=== PATIENT | female | born 1990 | race Caucasian/White ===

== ENCOUNTER → 2017-10-24 | Outpatient (CLI) | payer OTHER ==
[~2017-10-24] MED LIST: ALBU90OI6 INH; IBUP800 PO; TRAM50 PO; Ultram50 MG PO; Verotin-Gr Cap1 EACH PO
[2017-10-25 10:59] LABS: Source Vaginal/Cervical
== END | disposition home or self-care (01) ==
LOC: LAB 16:32 → LAB SHORT 16:32
PROVIDERS: Advanced Practice Midwife
DX: Z34.80 Encounter for supervision of other normal pregnancy, unspecified trimester (principal)
CPT/HCPCS: G0123

== ENCOUNTER → 2018-04-15 | Outpatient (CLI) | payer OTHER | END | disposition home or self-care (01) | LOC: LAB SHORT 15:52 → LAB 15:52 | DX: Z34.80 Encounter for supervision of other normal pregnancy, unspecified trimester (principal) | CPT/HCPCS: 87081; 87653 ==

== ENCOUNTER 2021-10-05 06:22 | Emergency (ER) | payer OTHER ==
[~2021-10-05] VITALS: Ht 160 cm; Wt 63.0 kg
[2021-10-05] MEDS ORDERED: Prozac20 MG PO (06:40)
[2021-10-05] MEDS ORDERED: ALPR1 PO (06:41)
[2021-10-05] MEDS ORDERED: OXYACE7.5T PO (07:51)
[2021-10-05] MEDS ORDERED: CRUTCH4 XX (07:51)
== END 2021-10-05 08:11 | disposition home or self-care (01) ==
LOC: ER 06:22
DX: S93.401A Sprain of unspecified ligament of right ankle, initial encounter (principal); S96.911A Strain of unspecified muscle and tendon at ankle and foot level, right foot, initial encounter; F17.210 Nicotine dependence, cigarettes, uncomplicated; X58.XXXA Exposure to other specified factors, initial encounter
CPT/HCPCS: 29515; 73610; 73630; 99283-25; A9270; L1906

== ENCOUNTER 2021-10-06 13:56 | Emergency (ER) | payer OTHER ==
[~2021-10-06] VITALS: Ht 160 cm; Wt 63.0 kg
[~2021-10-06 13:56] MED LIST changes: +ALPR1 PO; +CRUTCH4 XX; +OXYACE7.5T PO; +Prozac20 MG PO
== END 2021-10-06 14:44 | disposition home or self-care (01) ==
LOC: ER 13:56
DX: S92.901A Unspecified fracture of right foot, initial encounter for closed fracture (principal); J45.909 Unspecified asthma, uncomplicated; F17.210 Nicotine dependence, cigarettes, uncomplicated; Z79.899 Other long term (current) drug therapy; X58.XXXA Exposure to other specified factors, initial encounter
CPT/HCPCS: 29515; 99281

== ENCOUNTER 2021-10-23 12:21 | Day surgery (SDC) | payer OTHER ==
[~2021-10-23] VITALS: Ht 160 cm; Wt 68.1 kg
== END 2021-10-23 16:35 | disposition home or self-care (01) ==
LOC: ORSCSDS 12:21
PROVIDERS: Podiatrist Foot & Ankle Surgery
PROC: 0SGK04Z Fusion of Right Tarsometatarsal Joint with Internal Fixation Device, Open Approach (ICD-10-PCS; principal; 2021-10-23 14:15)
DX: S93.324A Dislocation of tarsometatarsal joint of right foot, initial encounter (principal); M25.571 Pain in right ankle and joints of right foot; Z87.891 Personal history of nicotine dependence; J45.909 Unspecified asthma, uncomplicated; Z79.899 Other long term (current) drug therapy
CPT/HCPCS: A9270; C1713; C1734; C1769; J0171; J1100; J2250; J2405; J2704; J3010; J7120

== ENCOUNTER 2021-10-29 14:07 | Emergency (ER) | payer OTHER ==
[~2021-10-29] VITALS: Ht 167.6 cm; Wt 68.0 kg
== END 2021-10-29 14:25 | disposition home or self-care (01) ==
LOC: ER 14:07
DX: Z47.89 Encounter for other orthopedic aftercare (principal); Z87.891 Personal history of nicotine dependence
CPT/HCPCS: 99282

== ENCOUNTER 2022-03-22 09:19 | Emergency (ER) | payer OTHER ==
[~2022-03-22] VITALS: Ht 160 cm; Wt 72.6 kg
[2022-03-22 09:56] LABS: Source, Urine Clean Catch
[2022-03-22 10:04] LABS: Appearance, Urine Cloudy (Clear); Bilirubin, Urine Neg (Neg); Blood, Urine 5+ (Neg); Glucose Qualitative, Urine Neg (Neg); Ketones, Urine Neg (Neg); Leukocyte Esterase, Urine 1+ (Neg); Nitrite, Urine Neg (Neg); Protein, Urine 2+ (Neg); Urobilinogen, Urine NORM (Normal)
[2022-03-22 10:20] LABS: BASOPHILS ABSOLUTE AUTO 0.02 K/mm3 (0.00-0.23); BASOPHILS PERCENT AUTO 0 % (0-2); EOSINOPHILS ABSOLUTE AUTO 0.08 K/mm3 (0.00-0.68); EOSINOPHILS PERCENT AUTO 1 % (0-6); Hematocrit 32.1 % (33.0-51.0); Hemoglobin 10.7 g/dL (11.5-16.0); IMMATURE GRAN ABSOLUTE AUTO 0.03 K/mm3 (0.00-0.10); IMMATURE GRAN PERCENT AUTO 0 % (0-1); LYMPHOCYTES PERCENT AUTO 19 % (21-46); MONOCYTES ABSOLUTE AUTO 0.47 K/mm3 (0.16-1.47); MONOCYTES PERCENT AUTO 6 % (4-13); Mean Corpuscular HGB 28.4 pg (26.0-34.0); Mean Corpuscular HGB Conc 33.3 g/dL (31.5-36.5); Mean Corpuscular Volume 85 fL (80-100); Mean Platelet Volume 10.5 fL (9.1-12.4); NEUTROPHILS ABSOLUTE AUTO 5.91 K/mm3 (1.96-9.15); NEUTROPHILS PERCENT AUTO 74 % (41-73); Platelet Count 195 K/mm3 (150-400); RDW Coefficient Variation 13.7 % (11.7-14.2); RDW Standard Deviation 41.8 fL (35.1-46.3); Red Blood Cell Count 3.77 M/mm3 (3.80-5.20); White Blood Cell Count 8.01 K/mm3 (4.00-11.30)
[2022-03-22 10:24] LABS: Color, Urine Red (P-Yellow)
[2022-03-22 10:35] LABS: Albumin, Blood 2.5 g/dL (3.4-5.0); Albumin/Globulin Ratio 0.8 (0.8-1.8); Bilirubin, Total 0.2 mg/dL (0.1-1.0); Bun/Creatinine Ratio 10.9 (12.0-20.0); Calcium, Blood 8.4 mg/dL (8.5-10.1); Creatinine, Blood 0.37 mg/dL (0.40-1.00); Globulin, Blood 3.2 g/dL (2.2-4.0); Potassium, Blood 2.5 mmol/L (3.5-5.5); Total Protein, Blood 5.7 g/dL (6.4-8.2)
[2022-03-22 10:40] LABS: Bacteria Rare /hpf; Red Blood Cells, Urine TNTC /hpf (0-2); Squamous Epithelial Cells Rare /hpf (Few); White Blood Cells, Urine 0-2 /hpf (0-5)
== END 2022-03-22 13:02 | disposition home or self-care (01) ==
LOC: ER 09:19
PROVIDERS: Physician Assistant
DX: O26.832 Pregnancy related renal disease, second trimester (principal); N13.2 Hydronephrosis with renal and ureteral calculous obstruction; O99.891 Other specified diseases and conditions complicating pregnancy; E87.6 Hypokalemia; O99.512 Diseases of the respiratory system complicating pregnancy, second trimester; J45.909 Unspecified asthma, uncomplicated; Z3A.23 23 weeks gestation of pregnancy; Z87.891 Personal history of nicotine dependence; Z79.899 Other long term (current) drug therapy
CPT/HCPCS: 36415; 76770; 76816; 80053; 81001; 84702; 85025; 87086; 93005; 93010; 99284-25; A9270

== ENCOUNTER 2022-06-26 11:07 | Inpatient (IN) | payer OTHER ==
[~2022-06-26] VITALS: Ht 160 cm; Wt 79.1 kg
--- NOTE | 2022-06-26 11:55 | NUR ---
D/C HOME WITH MOM
[2022-06-26 12:13] LABS: BASOPHILS ABSOLUTE AUTO 0.03 K/mm3 (0.00-0.23); BASOPHILS PERCENT AUTO 0 % (0-2); EOSINOPHILS ABSOLUTE AUTO 0.11 K/mm3 (0.00-0.68); EOSINOPHILS PERCENT AUTO 1 % (0-6); Hematocrit 30.4 % (33.0-51.0); Hemoglobin 10.3 g/dL (11.5-16.0); IMMATURE GRAN ABSOLUTE AUTO 0.04 K/mm3 (0.00-0.10); IMMATURE GRAN PERCENT AUTO 1 % (0-1); LYMPHOCYTES ABSOLUTE AUTO 1.64 K/mm3 (0.84-5.20); LYMPHOCYTES PERCENT AUTO 21 % (21-46); MONOCYTES ABSOLUTE AUTO 0.59 K/mm3 (0.16-1.47); MONOCYTES PERCENT AUTO 7 % (4-13); Mean Corpuscular HGB 28.1 pg (26.0-34.0); Mean Corpuscular HGB Conc 33.9 g/dL (31.5-36.5); Mean Corpuscular Volume 83 fL (80-100); Mean Platelet Volume 10.4 fL (9.1-12.4); NEUTROPHILS ABSOLUTE AUTO 5.51 K/mm3 (1.96-9.15); NEUTROPHILS PERCENT AUTO 70 % (41-73); Platelet Count 269 K/mm3 (150-400); RDW Coefficient Variation 14.5 % (11.7-14.2); RDW Standard Deviation 42.7 fL (35.1-46.3); Red Blood Cell Count 3.66 M/mm3 (3.80-5.20); White Blood Cell Count 7.92 K/mm3 (4.00-11.30)
[2022-06-26 12:33] LABS: Albumin, Blood 2.3 g/dL (3.4-5.0); Albumin/Globulin Ratio 0.6 (0.8-1.8); Bilirubin, Total 0.6 mg/dL (0.1-1.0); Bun/Creatinine Ratio 8.2 (12.0-20.0); Calcium, Blood 7.9 mg/dL (8.5-10.1); Creatinine, Blood 0.49 mg/dL (0.40-1.00); Globulin, Blood 3.7 g/dL (2.2-4.0); Potassium, Blood 2.7 mmol/L (3.5-5.5)
[2022-06-26 13:56] LABS: Protein, Urine Random 40.7 mg/dL (0.0-11.9); Protein/Creat Ratio, Ur Random 0.4
[2022-06-26] MEDS ORDERED: PRENATAL TABLE1 EAC2 PO (21:44)
[2022-06-28 06:32] LABS: BASOPHILS ABSOLUTE AUTO 0.06 K/mm3 (0.00-0.23); BASOPHILS PERCENT AUTO 1 % (0-2); EOSINOPHILS ABSOLUTE AUTO 0.22 K/mm3 (0.00-0.68); EOSINOPHILS PERCENT AUTO 2 % (0-6); Hemoglobin 11.2 g/dL (11.5-16.0); IMMATURE GRAN ABSOLUTE AUTO 0.06 K/mm3 (0.00-0.10); IMMATURE GRAN PERCENT AUTO 1 % (0-1); LYMPHOCYTES ABSOLUTE AUTO 2.98 K/mm3 (0.84-5.20); LYMPHOCYTES PERCENT AUTO 25 % (21-46); MONOCYTES ABSOLUTE AUTO 1.04 K/mm3 (0.16-1.47); MONOCYTES PERCENT AUTO 9 % (4-13); Mean Corpuscular HGB 28.1 pg (26.0-34.0); Mean Corpuscular HGB Conc 33.9 g/dL (31.5-36.5); Mean Corpuscular Volume 83 fL (80-100); Mean Platelet Volume 10.7 fL (9.1-12.4); NEUTROPHILS ABSOLUTE AUTO 7.73 K/mm3 (1.96-9.15); NEUTROPHILS PERCENT AUTO 64 % (41-73); Platelet Count 321 K/mm3 (150-400); RDW Coefficient Variation 14.6 % (11.7-14.2); RDW Standard Deviation 42.5 fL (35.1-46.3); Red Blood Cell Count 3.99 M/mm3 (3.80-5.20); White Blood Cell Count 12.09 K/mm3 (4.00-11.30)
== END 2022-06-28 12:05 | disposition home or self-care (01) | DRG 807 ==
LOC: OBS 11:07 → BC 11:07 → OBS 14:17 → BC 14:18
PROVIDERS: ADMIT Obstetrics & Gynecology
PROC: 10E0XZZ Delivery of Products of Conception, External Approach (ICD-10-PCS; principal; 2022-06-27)
DX: O14.14 Severe pre-eclampsia complicating childbirth (principal); Z37.0 Single live birth; Z3A.38 38 weeks gestation of pregnancy; Z67.40 Type O blood, Rh positive
CPT/HCPCS: 36415; 36416; 51702; 59025; 80053; 82570; 84156; 85025; 86803; 86850; 86900; 86901; 86923; A9270; J2210; J2590; J3010; J7120

== ENCOUNTER 2022-10-30 19:22 | Emergency (ER) | payer OTHER ==
[~2022-10-30] VITALS: Ht 160 cm; Wt 81.7 kg
[~2022-10-30 19:22] MED LIST changes: +PRENATAL TABLE1 EAC2 PO
== END 2022-10-30 20:21 | disposition home or self-care (01) ==
LOC: ER 19:22
DX: S60.512A Abrasion of left hand, initial encounter (principal); F10.129 Alcohol abuse with intoxication, unspecified; Z87.891 Personal history of nicotine dependence; W18.30XA Fall on same level, unspecified, initial encounter; Z79.899 Other long term (current) drug therapy
CPT/HCPCS: 99283

== ENCOUNTER 2023-02-07 12:36 | Emergency (ER) | payer OTHER ==
[~2023-02-07] VITALS: Ht 165.1 cm; Wt 81.7 kg
[2023-02-07 13:27] VITALS: BP 132/91
[2023-02-07] MEDS ORDERED: Percocet 5-3251 EACH PO (15:26)
== END 2023-02-07 15:44 | disposition home or self-care (01) ==
LOC: ER 12:36
DX: S93.601A Unspecified sprain of right foot, initial encounter (principal); J45.909 Unspecified asthma, uncomplicated; B19.20 Unspecified viral hepatitis C without hepatic coma; Z79.899 Other long term (current) drug therapy; Z87.891 Personal history of nicotine dependence; W01.198A Fall on same level from slipping, tripping and stumbling with subsequent striking against other object, initial encounter
CPT/HCPCS: 73630; A9270; J1885

== ENCOUNTER → 2023-06-30 | Outpatient (CLI) | payer OTHER ==
[~2023-06-30] MED LIST changes: +Percocet 5-3251 EACH PO
[2023-07-01 10:34] LABS: Candida species (DNA Probe) Negative (NEGATIVE); G. vaginalis (DNA Probe) Positive (NEGATIVE); T. vaginalis (DNA Probe) Negative (NEGATIVE)
[2023-07-04 00:46] LABS: APTIMA MEDIA TYPE Unisex Swab; C. TRACHOMATIS BY TMA Negative (Negative); N. GONORRHOEAE BY TMA Negative (Negative); SPECIMEN SOURCE Vaginal
[2023-07-04 01:27] LABS: HSV 1 SUBTYPE BY PCR Not Detected; HSV 2 SUBTYPE BY PCR Detected; HSV SUBTYPE SOURCE VAGINAL
== END ==
LOC: LAB 17:25 → LAB SHORT 17:25
PROVIDERS: Family Medicine
DX: R21 Rash and other nonspecific skin eruption (principal)
CPT/HCPCS: 87480; 87491; 87510; 87529; 87591; 87660

== ENCOUNTER 2024-08-09 01:22 | Emergency (ER) | payer OTHER ==
[~2024-08-09] VITALS: Ht 160 cm; Wt 54.4 kg
[2024-08-09] MEDS ORDERED: CefTRIAXone 500 MG Vial IM ONE (05:00)
[2024-08-09] MEDS ORDERED: Doxycycline Hyclate 100 MG TAB PO ONE (05:00)
[2024-08-09] MEDS ORDERED: DOXY100 PO (05:02)
[2024-08-09 06:17] VITALS: BP 122/80
== END 2024-08-09 06:16 | disposition home or self-care (01) ==
LOC: ER 01:22
DX: Z20.2 Contact with and (suspected) exposure to infections with a predominantly sexual mode of transmission (principal); F43.10 Post-traumatic stress disorder, unspecified; J45.909 Unspecified asthma, uncomplicated; Z87.891 Personal history of nicotine dependence; Z79.899 Other long term (current) drug therapy
CPT/HCPCS: 96372; 99282-25; A9270; J0696

== ENCOUNTER 2024-08-12 17:45 | Emergency (ER) | payer OTHER ==
[~2024-08-12] VITALS: Ht 160 cm; Wt 59.0 kg
[~2024-08-12 17:45] MED LIST changes: +DOXY100 PO
[2024-08-12] MEDS ORDERED: Ibuprofen 600 MG Tab PO ONE (19:50)
[2024-08-12] MEDS ORDERED: Acetaminophen 325 MG TABLET PO ONE (19:50)
[2024-08-12] MEDS ORDERED: Lidocaine/Tetracaine/Epinephr 3 ML GEL SYRINGE TOP ONE (20:00)
[2024-08-12 21:03] VITALS: BP 137/106
== END 2024-08-12 21:10 | disposition home or self-care (01) ==
LOC: ER 17:45
DX: S80.211A Abrasion, right knee, initial encounter (principal); M25.512 Pain in left shoulder; M54.6 Pain in thoracic spine; M25.571 Pain in right ankle and joints of right foot; V19.9XXA Pedal cyclist (driver) (passenger) injured in unspecified traffic accident, initial encounter; J45.909 Unspecified asthma, uncomplicated; F17.210 Nicotine dependence, cigarettes, uncomplicated; Z79.899 Other long term (current) drug therapy
CPT/HCPCS: 72070; 73030; 73562-RT; 73600; 99284-25; A9270

== ENCOUNTER 2024-10-10 13:43 | Emergency (ER) | payer OTHER ==
[~2024-10-10] VITALS: Ht 160 cm; Wt 63.5 kg
[2024-10-10 14:01] VITALS: BP 138/116
[2024-10-10] MEDS ORDERED: Triamcinolone Acet 0.1% Cream 15 gm TOP ONE (14:30)
[2024-10-10] MEDS ORDERED: Triamcinolone Inj Susp 40 MG / ML 1ML Vial IM ONE (14:30)
[2024-10-10] MEDS ORDERED: TRIA15CR3 TOP (15:00)
[2024-10-10] MEDS ORDERED: ZYRTEC10 M2 PO (15:00)
== END 2024-10-10 15:22 | disposition home or self-care (01) ==
LOC: ER 13:43
DX: L23.7 Allergic contact dermatitis due to plants, except food (principal); I10 Essential (primary) hypertension; J45.909 Unspecified asthma, uncomplicated; Z87.891 Personal history of nicotine dependence
CPT/HCPCS: 96372; 99282-25; A9270; J3301

== ENCOUNTER 2025-02-07 21:29 | Emergency (ER) | payer OTHER ==
[~2025-02-07] VITALS: Ht 160 cm; Wt 81.7 kg
[~2025-02-07 21:29] MED LIST changes: +TRIA15CR3 TOP; +ZYRTEC10 M2 PO
[2025-02-07 21:35] VITALS: BP 163/110
[2025-02-07] MEDS ORDERED: RX Prepack 6 Tabs Oxycodone 5mg UD ONE (22:50)
== END 2025-02-07 23:03 | disposition home or self-care (01) ==
LOC: ER 21:29
DX: M79.675 Pain in left toe(s) (principal); M79.672 Pain in left foot; W20.8XXA Other cause of strike by thrown, projected or falling object, initial encounter; I10 Essential (primary) hypertension; J45.909 Unspecified asthma, uncomplicated; Z87.891 Personal history of nicotine dependence
CPT/HCPCS: 73610; 73630; 99283-25; A9270